=== PATIENT | female | born 1970 | race Caucasian/White ===

== ENCOUNTER 2022-09-26 11:01 | Emergency (ER) | payer OTHER ==
[2022-09-26 11:19] VITALS: PULSE 71; RESP 18; TEMP 97.5; BMI 24.7
[2022-09-26] MEDS ORDERED: ACETAMINOPHEN 1000 MG/100 ML BAG IVPB ONE (12:06)
[2022-09-26] MEDS ORDERED: METOCLOPRAMIDE HCL INJECTION 10 MG/2 ML VIAL IVPB ONE (12:06)
[2022-09-26] MEDS ORDERED: FAMOTIDINE 20 MG/50 ML IVPB 20 MG/50 ML MG IVPB ONE ×2 (12:06→12:17)
[2022-09-26] MEDS ORDERED: SODIUM CHLORIDE 0.9% 500 ML INFUS.BAG IV ONE (12:06)
[2022-09-26] MEDS ORDERED: METOCLOPRAMIDE HCL INJECTION 10 MG/2 ML VIAL ONE (12:17)
[2022-09-26] MEDS ORDERED: ACETAMINOPHEN INJECTION 100 ML IVPB ONE (12:17)
[2022-09-26 12:48] LABS: BASO % 0.5 % (0-2.0); EOS % 2.6 % (0-4.5); HEMATOCRIT 37.8 % (32.4-45.2); HEMOGLOBIN 12.9 GM/dL (10.7-15.3); LYMPH % 26.5 % (8-40); MCH 31.8 pg (25.7-33.7); MEAN CELL VOLUME 93.3 fl (80-96); MEAN PLT VOLUME 8.3 fl (7.5-11.1); MONO % 4.5 % (3.8-10.2); NEUT % 65.9 % (42.8-82.8); PLATELET COUNT 264 10^3/uL (134-434); RBC 4.05 M/mm3 (3.60-5.2); RDW 13.8 % (11.6-15.6); WHITE BLOOD COUNT 6.5 K/mm3 (4.0-10.0)
[2022-09-26 13:13] LABS: CALCIUM 9.7 mg/dL (8.5-10.1)
[2022-09-26 13:14] LABS: ALBUMIN 4.3 g/dl (3.4-5.0); BLOOD UREA NITROGEN 11.7 mg/dL (7-18)
[2022-09-26 13:17] LABS: CREATININE 0.7 mg/dL (0.55-1.3)
[2022-09-26 13:18] LABS: TOT PROT 7.6 g/dl (6.4-8.2)
[2022-09-26 13:19] LABS: BILIRUBIN,TOTAL 1.2 mg/dL (0.2-1)
[2022-09-26] MEDS ORDERED: POTASSIUM CHLORIDE TABS 20 MEQ TABLET.ER (FP) PO ONE ×2 (13:48→13:56)
[2022-09-26 13:49] VITALS: BP 149/94
== END 2022-09-26 16:28 | disposition home or self-care (01) ==
LOC: JER 11:01
PROC: 3E033GC Introduction of Other Therapeutic Substance into Peripheral Vein, Percutaneous Approach (ICD-10-PCS; principal; 2022-09-26)
DX: R51.9 Headache, unspecified (principal); R42 Dizziness and giddiness
CPT/HCPCS: 0241U-QW; 36415; 70450-TC; 80053; 83690; 84484; 84703; 85025; 93005; 93010; 99285-25